=== PATIENT | female | born 1970 | race Caucasian/White ===

== ENCOUNTER → 2018-01-23 17:58 | Outpatient (REF) | payer MEDICAID, SELFPAY ==
[2018-01-30 14:58] LABS: Alpha-1-Antitrypsin 128 mg/dL (100 - 190)
== END ==
LOC: NCHCN 17:58
PROVIDERS: PCP Family Medicine; Visit Provider Family Medicine
DX: R06.09 Other forms of dyspnea (principal); Z83.6 Family history of other diseases of the respiratory system
CPT/HCPCS: 82103; 82104